=== PATIENT | female | born 1985 | race American Indian/Alaskan Native ===

== ENCOUNTER 2018-07-14 21:27 | Emergency (ER) | payer OTHER ==
--- NOTE | 2018-07-14 22:12 | Emergency Department Report ---
Chief Complaint: Dental/Oral Stated Complaint: ABSCESS TOOTH AND MIGRAINE HEADACHE Time Seen by Provider: 07/14/18 22:08 - HPI History of Present Illness: This is a 33 y.o. F. that presents with toothache and migraine. PMH: Von Willebrand LMP 07/07/2018, A1 - Exam Vital Signs: Vital Signs 07/14/18 21:31 Temperature 98.2 F Pulse Rate 78 Respiratory 18 Rate Blood Pressure 125/74 O2 Sat by Pulse 100 Oximetry MSE screening note: Focused history and physical exam performed. Due to findings the following was ordered: This initial assessment/diagnostic orders/clinical plan/treatment(s) is/are subject to change based on patient's health status, clinical progression and re- assessment by fellow clinical providers in the ED. Further treatment and workup at subsequent clinical providers discretion. Patient/guardians urged not to elope from the ED as their condition may be serious if not clinically assessed and managed. Initial orders include: 1- Patient sent to [facility] for further evaluation and treatment 2- Labs ED Disposition for MSE Condition: Stable
[2018-07-14 22:54] LABS: Mean Corpuscular HGB Conc 27 % (30-34); Platelet Count 399 K/mm3 (140-440); Red Blood Count 4.22 M/mm3 (3.65-5.03)
[2018-07-14 22:55] LABS: Hematocrit 22.6 % (30.3-42.9); Hemoglobin 6.2 gm/dl (10.1-14.3); Mean Corpuscular Volume 54 fl (79-97)
[2018-07-14 22:56] LABS: Red Cell Distribution Width 24.4 % (13.2-15.2)
[2018-07-14 22:58] LABS: INR 1.03 (0.87-1.13)
[2018-07-14 22:59] LABS: Partial Thromboplastin Time 23.7 Sec. (24.2-36.6)
[2018-07-15] MEDS ORDERED: PERCOCET 5/325 PO STA (01:31)
--- NOTE | 2018-07-15 01:34 | Emergency Department Report ---
ED General Adult HPI - General Chief complaint: Dental/Oral Stated complaint: ABSCESS TOOTH AND MIGRAINE HEADACHE Time Seen by Provider: 07/14/18 22:08 Source: patient Mode of arrival: Ambulatory Limitations: No Limitations - History of Present Illness Initial comments: 33-year-old [place] female of's emergency department complaining of a one day history of progressively worsening right lower dental pain. States she was in the process of having her teeth pulled, but has relocated from [place] to the [facility] and it has not followed up with a dentist. Pain originates in the right lower gumline but radiates up the side of her face to her head, causing a dull throbbing pain similar to her migraine flare up. She has not tried taking anything [id number], but seeks analgesia control. Light makes the pain was is worse as well as a palpation and loud noses. Also has some discomfort when chewing. No fever, chills, sweats, chest palpitations, nausea or vomiting. -: Gradual Radiation: non-radiation Quality: aching, dull Consistency: constant Improves with: none Worsens with: none Associated Symptoms: denies: cough, diaphoresis, fever/chills, loss of appetite, malaise, nausea/vomiting, rash, shortness of breath, syncope, weakness - Related Data Previous Rx's Medication Instructions Recorded Last Taken Type Chlorhexidine Mouthwash [Peridex] 15 ml MM BID #473 bottle 07/15/18 Unknown Rx Clindamycin [Clindamycin CAP] 300 mg PO Q6H #28 capsule 07/15/18 Unknown Rx Lidocaine Viscous 2% 5 ml MM Q3H PRN #120 udc 07/15/18 Unknown Rx Allergies Allergy/AdvReac Type Severity Reaction Status Date / Time NSAIDS (Non-Steroidal Allergy Unknown Verified 07/14/18 21:32 Anti-Inflamma Penicillins Allergy Unknown Verified 07/14/18 21:32 ED Review of Systems ROS: Stated complaint: ABSCESS TOOTH AND MIGRAINE HEADACHE Other details as noted in HPI Constitutional: denies: chills, fever Eyes: denies: eye pain, eye discharge, vision change ENT: dental pain. denies: ear pain, throat pain Respiratory: denies: cough, shortness of breath, wheezing Cardiovascular: denies: chest pain, palpitations Endocrine: no symptoms reported Gastrointestinal: denies: abdominal pain, nausea, diarrhea Genitourinary: denies: urgency, dysuria, discharge Musculoskeletal: denies: back pain, joint swelling, arthralgia Skin: denies: rash, lesions Neurological: denies: headache, weakness, paresthesias Psychiatric: denies: anxiety, depression Hematological/Lymphatic: denies: easy bleeding, easy bruising ED Past Medical Hx - Past Medical History Previous Medical History?: Yes Additional medical history: Von Willebrand - Surgical History Past Surgical History?: Yes Additional Surgical History: x4 - Social History Smoking Status: Current Every Day Smoker Substance Use Type: None - Medications Home Medications: Home Medications Medication Instructions Recorded Confirmed Last Taken Type Chlorhexidine Mouthwash [Peridex] 15 ml MM BID #473 bottle 07/15/18 Unknown Rx Clindamycin [Clindamycin CAP] 300 mg PO Q6H #28 capsule 07/15/18 Unknown Rx Lidocaine Viscous 2% 5 ml MM Q3H PRN #120 udc 07/15/18 Unknown Rx ED Physical Exam - General Limitations: No Limitations General appearance: alert, in no apparent distress - Head Head exam: Present: atraumatic, normocephalic - Eye Eye exam: Present: normal appearance, PERRL, EOMI - ENT ENT exam: Present: mucous membranes moist, TM's normal bilaterally, other (severe dental caries and dental erosion diffusely. Pain with palpation and some adjacent gingival swelling. Tongue and uvula are midline.) - Neck Neck exam: Present: normal inspection, full ROM, lymphadenopathy - Respiratory Respiratory exam: Present: normal lung sounds bilaterally. Absent: respiratory distress - Cardiovascular Cardiovascular Exam: Present: regular rate, normal rhythm. Absent: systolic murmur, diastolic murmur, rubs, gallop - GI/Abdominal GI/Abdominal exam: Present: soft, normal bowel sounds - Extremities Exam Extremities exam: Present: normal inspection - Back Exam Back exam: Present: normal inspection - Neurological Exam Neurological exam: Present: alert, oriented X3 - Psychiatric Psychiatric exam: Present: normal affect, normal mood - Skin Skin exam: Present: warm, dry, intact, normal color. Absent: rash ED Course Vital Signs 07/14/18 07/14/18 21:31 22:08 Temperature 98.2 F 98.2 F Pulse Rate 78 74 Respiratory 18 18 Rate Blood Pressure 125/74 125/74 O2 Sat by Pulse 100 100 Oximetry ED Medical Decision Making - Lab Data Result diagrams: 07/14/18 22:30 Critical care attestation.: If time is entered above; I have spent that time in minutes in the direct care of this critically ill patient, excluding procedure time. ED Disposition Clinical Impression: Cephalgia, Dentalgia Disposition: DC-01 TO HOME OR SELFCARE Is pt being admited?: No Does the pt Need Aspirin: No Condition: Stable Instructions: Dental Caries (ED), Toothache (ED) Referrals: NEELA DOTSON MD [Primary Care Provider] - 3-5 Days [facility] [Outside] - 3-5 Days
[2018-07-15 02:43] VITALS: BP 103/59
== END 2018-07-15 03:45 | disposition home or self-care (01) ==
LOC: ED 21:27
DX: K08.89 Other specified disorders of teeth and supporting structures (principal); R51 Headache; F17.200 Nicotine dependence, unspecified, uncomplicated; Z88.6 Allergy status to analgesic agent; Z88.0 Allergy status to penicillin
CPT/HCPCS: 36415; 85027; 85610; 85730

== ENCOUNTER 2018-10-28 15:23 | Inpatient (IN) | payer OTHER ==
--- NOTE | 2018-10-28 15:38 | Emergency Department Report ---
Blank Doc - Documentation Documentation: 33-year-old female that presents with n/v and abdominal pain. This initial assessment/diagnostic orders/clinical plan/treatment(s) is/are subject to change based on patient's health status, clinical progression and re- assessment by fellow clinical providers in the ED. Further treatment and workup at subsequent clinical providers discretion. Patient/guardians urged not to elope from the ED as their condition may be serious if not clinically assessed and managed. Initial orders include: 1- Patient sent to [facility] for further evaluation and treatment 2- labs 3- UA
[2018-10-28 16:08] LABS: Bilirubin,Urine NEG (Negative); Color,Urine Straw (Yellow)
[2018-10-28 16:09] LABS: Blood,Urine SM (Negative); Protein,Urine <15 mg/dL mg/dL (Negative); Urobilinogen,Urine < 2.0 mg/dL (<2.0)
[2018-10-28 16:15] LABS: Basophils # (Auto) 0.1 K/mm3 (0.0-0.1); Basophils % (Auto) 0.7 % (0.0-1.8); Eosinophils % (Auto) 0.1 % (0.0-4.3); Lymphocytes # (Auto) 0.6 K/mm3 (1.2-5.4); Lymphocytes % (Auto) 5.6 % (13.4-35.0); Mean Corpuscular HGB Conc 27 % (30-34); Monocytes # (Auto) 0.7 K/mm3 (0.0-0.8); Monocytes % (Auto) 6.2 % (0.0-7.3); Platelet Count 319 K/mm3 (140-440); Red Blood Count 4.14 M/mm3 (3.65-5.03)
[2018-10-28 16:15] LABS: WBC,Urine < 1.0 /HPF (0.0-6.0)
[2018-10-28 16:36] LABS: Alanine Aminotransferase 13 units/L (7-56); Albumin 4.4 g/dL (3.9-5); BUN/Creatinine Ratio 8; Blood Urea Nitrogen 4 mg/dL (7-17); Calcium 9.5 mg/dL (8.4-10.2); Hemolysis Index 2; Mean Corpuscular Volume 53 fl (79-97)
[2018-10-28] MEDS ORDERED: NACL 0.9% 500 ML 500 ML IV ONE (19:05)
[2018-10-28] MEDS ORDERED: ZOFRAN IV ONE (19:05)
[2018-10-28] MEDS ORDERED: NACL 0.9% 1000 ML 1,000 ML IV ONE (19:05)
[2018-10-28] MEDS ORDERED: MORPHINE IV ONE (19:05)
--- NOTE | 2018-10-28 19:11 | Emergency Department Report ---
ED GI Bleed HPI - General Chief complaint: Abdominal Pain Stated complaint: ULCER INFLAMMATION Time Seen by Provider: 10/28/18 15:37 Source: patient Mode of arrival: Ambulatory Limitations: No Limitations - History of Present Illness Initial comments: Patient is 33 years old female with history of Von Willebrand's disease and history of peptic ulcer. Patient presented to the ER complaining of vomiting blood and epigastric abdominal pain that is started this morning. Patient also stated that she has been passing blood in the stool. Patient stated that she never had an endoscopy before. Patient denied any fever or chills recently. Patient denied any vaginal bleeding or hematuria or hemoptysis. MD complaint: gross hematemesis, melena, blood streaked stool -: This morning Location: epigastric Radiation: none Severity scale (0 -10): 6 Quality: burning Consistency: constant Context: history of GI bleed - Related Data Previous Rx's Medication Instructions Recorded Last Taken Type Chlorhexidine Mouthwash [Peridex] 15 ml MM BID #473 bottle 07/15/18 Unknown Rx Clindamycin [Clindamycin CAP] 300 mg PO Q6H #28 capsule 07/15/18 Unknown Rx Lidocaine Viscous 2% 5 ml MM Q3H PRN #120 udc 07/15/18 Unknown Rx traMADol [Ultram] 50 mg PO Q6HR PRN #14 tablet 07/15/18 Unknown Rx Allergies Allergy/AdvReac Type Severity Reaction Status Date / Time NSAIDS (Non-Steroidal Allergy Unknown Verified 07/14/18 21:32 Anti-Inflamma Penicillins Allergy Unknown Verified 07/14/18 21:32 ED Review of Systems ROS: Stated complaint: ULCER INFLAMMATION Other details as noted in HPI Comment: All other systems reviewed and negative Constitutional: denies: chills, fever Respiratory: denies: cough Gastrointestinal: abdominal pain, nausea, vomiting, hematemesis, melena, hematochezia. denies: diarrhea, constipation Genitourinary: denies: hematuria Musculoskeletal: denies: back pain Neurological: denies: headache, weakness, numbness, paresthesias, confusion ED Past Medical Hx - Past Medical History Previous Medical History?: Yes Additional medical history: Von Willebrand, stomach ulcers - Surgical History Additional Surgical History: x4 - Social History Smoking Status: Current Every Day Smoker Substance Use Type: None - Medications Home Medications: Home Medications Medication Instructions Recorded Confirmed Last Taken Type Chlorhexidine Mouthwash [Peridex] 15 ml MM BID #473 bottle 07/15/18 Unknown Rx Clindamycin [Clindamycin CAP] 300 mg PO Q6H #28 capsule 07/15/18 Unknown Rx Lidocaine Viscous 2% 5 ml MM Q3H PRN #120 udc 07/15/18 Unknown Rx traMADol [Ultram] 50 mg PO Q6HR PRN #14 tablet 07/15/18 Unknown Rx ED Physical Exam - General Limitations: No Limitations General appearance: alert, in no apparent distress - Head Head exam: Present: atraumatic, normocephalic, normal inspection - Eye Eye exam: Present: other (pale conjunctiva) - ENT ENT exam: Present: normal exam, normal orophraynx, mucous membranes moist - Neck Neck exam: Present: normal inspection, full ROM. Absent: tenderness, meningismus, lymphadenopathy, thyromegaly - Respiratory Respiratory exam: Present: normal lung sounds bilaterally - Cardiovascular Cardiovascular Exam: Present: regular rate, normal rhythm, normal heart sounds - GI/Abdominal GI/Abdominal exam: Present: soft, tenderness, normal bowel sounds. Absent: distended, guarding, rebound, rigid, organomegaly, mass, bruit, pulsatile mass, hernia - Extremities Exam Extremities exam: Present: normal inspection, full ROM, normal capillary refill - Back Exam Back exam: Present: normal inspection, full ROM. Absent: CVA tenderness (R), CVA tenderness (L), muscle spasm, paraspinal tenderness, vertebral tenderness - Neurological Exam Neurological exam: Present: alert, oriented X3, CN II-XII intact, normal gait, reflexes normal - Psychiatric Psychiatric exam: Present: normal mood - Skin Skin exam: Present: warm, intact, normal color ED Course Vital Signs 10/28/18 10/28/18 10/28/18 15:37 17:32 19:45 Temperature 98.1 F Pulse Rate 100 H 82 73 Respiratory 15 16 16 Rate Blood Pressure 122/64 Blood Pressure 118/68 106/66 [Left] O2 Sat by Pulse 100 100 100 Oximetry 10/28/18 10/28/18 10/28/18 20:15 20:43 20:45 Temperature Pulse Rate 72 73 73 Respiratory 14 14 18 Rate Blood Pressure 99/46 101/49 110/60 Blood Pressure [Left] O2 Sat by Pulse 98 98 Oximetry 10/28/18 20:46 Temperature 98.7 F Pulse Rate Respiratory Rate Blood Pressure Blood Pressure [Left] O2 Sat by Pulse Oximetry ED Medical Decision Making - Lab Data Result diagrams: 10/28/18 15:58 10/28/18 15:58 - Radiology Data Radiology results: report reviewed - Medical Decision Making Patient is 33 years old female with history of Von Willebrand's disease and history of peptic ulcer. Patient presented to the ER complaining of vomiting blood and epigastric abdominal pain that is started this morning. Patient also stated that she has been passing blood in the stool. Patient stated that she never had an endoscopy before. Patient denied any fever or chills recently. Patient denied any vaginal bleeding or hematuria or hemoptysis. Patient found to have a hemoglobin of 6. Patient started on Protonix.. 1 units of PRBC. I discussed the patient is Dr. Kilgore from gastroenterology she advised that she will follow-up with the patient. I discussed the patient is Dr. Shala Solares, She agreed to admit the patient to medical service. Critical Care Time: Yes Critical care time in (mins) excluding proc time.: 30 Critical care attestation.: If time is entered above; I have spent that time in minutes in the direct care of this critically ill patient, excluding procedure time. ED Disposition Clinical Impression: GI bleed, Abdominal pain, Anemia Disposition: OP ADMIT IP TO THIS HOSP Is pt being admited?: Yes Condition: Stable Instructions: Abdominal Pain (ED) Referrals: PRIMARY CARE, [Primary Care Provider] - 3-5 Days
[2018-10-28 20:54] LABS: Bilirubin,Urine NEG (Negative); Blood,Urine NEG (Negative); Color,Urine Straw (Yellow); Protein,Urine <15 mg/dL mg/dL (Negative); Urobilinogen,Urine < 2.0 mg/dL (<2.0); WBC,Urine < 1.0 /HPF (0.0-6.0)
--- NOTE | 2018-10-28 21:18 | Cat Scan Report ---
CT ABDOMEN AND PELVIS WITH CONTRAST INDICATION / CLINICAL INFORMATION: abdominal pain AND DISTENTION . TECHNIQUE: Axial CT images were obtained through the abdomen and pelvis after 100cc Omnipaque 300 mg% IV contras t. All CT scans at this location are performed using CT dose reduction for ALARA by means of automat ed exposure control. COMPARISON: None available. FINDINGS: LOWER CHEST: No significant abnormality. LIVER: No significant abnormality. GALLBLADDER: No significant abnormality. BILE DUCTS: No significant abnormality. PANCREAS: No significant abnormality. SPLEEN: No significant abnormality. ADRENALS: No significant abnormality. RIGHT KIDNEY and URETER: No significant abnormality. LEFT KIDNEY and URETER: No significant abnormality. STOMACH and SMALL BOWEL: No significant abnormality. COLON: No significant abnormality. APPENDIX: Cannot be identified PERITONEUM: No free fluid. No free air. No fluid collection. LYMPH NODES: No significant adenopathy. AORTA and ARTERIES: No significant abnormality. IVC and VEINS: No significant abnormality. URINARY BLADDER: No significant abnormality. REPRODUCTIVE ORGANS: No significant abnormality. A 2.6 cm cyst present left adnexa. Small amount of f luid is present in the left adnexa ADDITIONAL FINDINGS: None. SKELETAL SYSTEM: No significant abnormality. IMPRESSION: 1. Left ovarian cyst Signer Name: Jaden Wolff MD Signed: 10/28/2018 9:13 PM Workstation Name: [id number]
--- NOTE | 2018-10-28 22:07 | History and Physical Report ---
History of Present Illness Date of examination: 10/28/18 History of present illness: 33 -year-old woman with a history of peptic ulcer disease, vWD comes emergency room with complaints of abdominal pain that started this morning, located in the entire abdomen was started after eating from [employer]. Abdomen sharp, c onstant, intensity 6/10, no radiation, can't identify exacerbating factor, better with IV morphine given in the emergency room. Also stated that she had nausea vomiting , 2 episodes with streaks of blood, also had 2 episodes of hematochezia, no NSAID use Review Of Systems: Constitutional: no weight loss, fever, chills Ears, eyes, nose, mouth and throat: no nasal congestion, no nasal discharge, no sinus pressure, blurry vision, diplopia Neck: No neck pain or rigidity. Cardiovascular: No palpitations, chest pain Respiratory: No shortness of breath, cough Gastrointestinal: +hematochezia, abdominal pain Genitourinary : no dysuria, frequency , hematuria Musculoskeletal: no muscle ache , joint pain Integumentary: no rash, no pruritis Neurological: no parathesias, focal weakness Endocrine: no cold or heat intolerance, no polyuria or polydipsia Hematologic/Lymphatic: no easy bruising, no easy bleeding, no gland swelling Allergic/Immunologic: no urticaria, no angioedema. PAST MEDICAL HISTORY:peptic ulcer disease, vWD PAST SURGICAL HISTORY:None FAMILY HISTORY:hypertension, diabetes SOCIAL HISTORY: Smoke 3 cigarettes a day , drugs or alcohol Medications and Allergies Allergies Allergy/AdvReac Type Severity Reaction Status Date / Time NSAIDS (Non-Steroidal Allergy Unknown Verified 07/14/18 21:32 Anti-Inflamma Penicillins Allergy Unknown Verified 07/14/18 21:32 Exam - Physical Exam Narrative exam: General Apperance: The patient sitting in bed no acute distress HEENT: Normocephalic, atraumatic. Pupils equally round and reactive to light, extraocular movement intact, and no sclericterus or JVD or thyromegaly or nodule. Neck supple, no carotid bruit, mucous membranes moist, no exudate or e rythema Heart: S1-S2, regular is rhythm Lungs: Clear to auscultation bilaterally, breathing comfortable Abdomen: Positive bowel sounds, soft, +tender all over, nondistended, no organomegaly Extremities: No edema cyanosis clubbing Skin: no rash, nodule, warm and dry Neuro:CN 2 -12 intact, motor/sensory intact, speech is fluent - Constitutional Vitals: Temp Pulse Resp BP Pulse Ox 98.7 F 73 18 110/60 98 10/28/18 20:46 10/28/18 20:45 10/28/18 20:45 10/28/18 20:45 10/28/18 20:45 Results - Labs CBC & Chem 7: 10/28/18 15:58 10/28/18 15:58 Labs: Abnormal lab results 10/28/18 10/28/18 10/28/18 Range/Units 15:54 15:58 15:58 WBC 11.3 H (4.5-11.0) K/mm3 Hgb 6.0 L (10.1-14.3) gm/dl Hct 22.0 L (30.3-42.9) % MCV 53 L (79-97) fl MCH 15 L (28-32) pg MCHC 27 L (30-34) % RDW 23.0 H (13.2-15.2) % Lymph % (Auto) 5.6 L (13.4-35.0) % Lymph # 0.6 L (1.2-5.4) K/mm3 Seg Neutrophils % 87.4 H (40.0-70.0) % Seg Neutrophils # 9.9 H (1.8-7.7) K/mm3 Sodium 136 L (137-145) mmol/L Carbon Dioxide 19 L (22-30) mmol/L BUN 4 L (7-17) mg/dL Creatinine 0.5 L (0.7-1.2) mg/dL Urine pH 8.0 H (5.0-7.0) Crossmatch 10/28/18 Range/Units 17:28 WBC (4.5-11.0) K/mm3 Hgb (10.1-14.3) gm/dl Hct (30.3-42.9) % MCV (79-97) fl MCH (28-32) pg MCHC (30-34) % RDW (13.2-15.2) % Lymph % (Auto) (13.4-35.0) % Lymph # (1.2-5.4) K/mm3 Seg Neutrophils % (40.0-70.0) % Seg Neutrophils # (1.8-7.7) K/mm3 Sodium (137-145) mmol/L Carbon Dioxide (22-30) mmol/L BUN (7-17) mg/dL Creatinine (0.7-1.2) mg/dL Urine pH (5.0-7.0) Crossmatch See Detail - Imaging and Cardiology CT scan - abdomen: report reviewed CT scan - pelvis: report reviewed Assessment and Plan Assessment GI bleed Anemia Abdominal pain,NOS vWD plan Admit medicine Transfuse packed red blood cells, consult GI start Protonix, check serial hemoglobin DVT prophylaxis, IV morphine
[2018-10-28] MEDS ORDERED: ZOFRAN IV PRN (23:22)
[2018-10-28] MEDS ORDERED: SODIUM CHLORIDE FLUSH SYRINGE 10 ML IV PRN (23:22)
[2018-10-28] MEDS ORDERED: NACL 0.45% 1000 ML 1,000 ML IV SCH (23:45)
[2018-10-29] MEDS: PROTONIX IV SCH ×3 (00:04→22:19)
[2018-10-29] MEDS: MORPHINE IV PRN ×5 (00:04→20:25)
[2018-10-29 00:33] LABS: Hemoglobin 6.4 gm/dl (10.1-14.3)
[2018-10-29 00:34] LABS: Hematocrit 22.5 % (30.3-42.9)
[2018-10-29 04:21] LABS: Hematocrit 21.7 % (30.3-42.9); Hemoglobin 6.3 gm/dl (10.1-14.3); Mean Corpuscular HGB Conc 29 % (30-34); Platelet Count 246 K/mm3 (140-440); Red Blood Count 3.74 M/mm3 (3.65-5.03)
[2018-10-29 04:29] LABS: Mean Corpuscular Volume 58 fl (79-97); Red Cell Distribution Width 27.6 % (13.2-15.2)
[2018-10-29 04:31] LABS: BUN/Creatinine Ratio 10; Blood Urea Nitrogen 5 mg/dL (7-17); Calcium 8.5 mg/dL (8.4-10.2); Hemolysis Index 3
[2018-10-29] MEDS ORDERED: NACL 0.9% 500 ML 500 ML IV ONE (04:46)
--- NOTE | 2018-10-29 04:49 | Event Note ---
Date: 10/29/18 Pt hgb on admission 6.0, she received 1U PRBC. hgb rechecked now 6.3; Will order additional 1u PRBC. Continue to monitor hgb.
[2018-10-29 05:33] LABS: Basophils % (Manual) 0 % (0.0-1.8); Monocytes % (Manual) 0 % (0.0-7.3); Total Cells Counted 100
[2018-10-29 05:34] LABS: Anisocytosis 2+; Hypochromasia 3+; Macrocytosis Few; Ovalocytes 1+
[2018-10-29 05:35] LABS: Platelet Estimate Consistent w Auto; Schistocytes Rare
[2018-10-29] MEDS ORDERED: D5NS 1,000 ML IV SCH (08:00)
[2018-10-29 10:24] LABS: Hematocrit 25.7 % (30.3-42.9); Hemoglobin 7.8 gm/dl (10.1-14.3)
[2018-10-29 10:38] LABS: INR 1.17 (0.87-1.13)
[2018-10-29] MEDS ORDERED: NACL 0.9% 1000 ML 1,000 ML IV SCH (11:00)
[2018-10-29] MEDS: TYLENOL PO PRN ×2 (11:07→19:01)
[2018-10-29] MEDS: SODIUM CHLORIDE FLUSH SYRINGE 10 ML IV SCH ×2 (11:08→22:20)
--- NOTE | 2018-10-29 11:27 | Gastroenterology Consultation ---
<OLIVERIO BRUNO - Last Filed: 10/29/18 11:28> History of Present Illness - Reason for Consult Consult date: 10/29/18 GI bleed Requesting physician: VINH SMITH - History of Present Illness Patient is a 33 y/o female with PMH of Von Willebrand's disease and PUD who presented to ED for evaluation of vomiting blood and epigastric pain. Upon admission she was found to be anemic with H/H 6.0/22.0. Abd CT showed ovarian cyst but no other abnormality. GI has been consulted for GI bleed. This morning patient was resting in bed w/o acute distress. She reports 3 episodes of bright red bloody emesis yesterday (vomiting began after eating a [employer]). Admits to continued generalized abdominal soreness today but has had no further active signs of bleeding overnight. Denies fever, CP, SOB, wt loss, melena, diarrhea, or gross hematochezia (last BM was with brown stool and slight streaking of red blood on stool per pt report). No hx of liver disease but states a hx of PUD 3 years while in [place] requiring endoscopy with etiology thought to be 2/2 NSAID use to which patient has not taken since that time. Last colonoscopy approximately 5 years ago with negative result per pt report. Past History Past Medical History: other (Von Willebrand, PUD) Past Surgical History: Social history: smoking Family history: diabetes, hypertension, other (vWD) Medications and Allergies Allergies Allergy/AdvReac Type Severity Reaction Status Date / Time NSAIDS (Non-Steroidal Allergy Unknown Verified 07/14/18 21:32 Anti-Inflamma Penicillins Allergy Unknown Verified 07/14/18 21:32 Active Meds: Active Medications Acetaminophen (Tylenol) 650 mg PO Q4H PRN PRN Reason: Pain MILD(1-3)/Fever >100.5/KELLER Last Admin: 10/29/18 11:07 Dose: 650 mg Documented by: Dextrose/Sodium Chloride (D5ns) 1,000 mls @ 75 mls/hr IV DIRECT VIJAYA Sodium Chloride (Nacl 0.9% 1000 Ml) 1,000 mls @ 50 mls/hr IV DIRECT VIJAYA Last Admin: 10/29/18 11:08 Dose: 50 mls/hr Documented by: Morphine Sulfate (Morphine) 2 mg IV Q4H PRN PRN Reason: Pain, Moderate (4-6) Last Admin: 10/29/18 09:09 Dose: 2 mg Documented by: Ondansetron HCl (Zofran) 4 mg IV Q8H PRN PRN Reason: Nausea And Vomiting Pantoprazole Sodium (Protonix) 40 mg IV BID [facility] Last Admin: 10/29/18 09:09 Dose: 40 mg Documented by: Sodium Chloride (Sodium Chloride Flush Syringe 10 Ml) 10 ml IV BID [facility] Last Admin: 10/29/18 11:08 Dose: 10 ml Documented by: Sodium Chloride (Sodium Chloride Flush Syringe 10 Ml) 10 ml IV PRN PRN PRN Reason: LINE FLUSH medications reviewed/updated as required Review of Systems - Review of Systems All systems: negative Gastrointestinal: abdominal pain, hematemesis Exam - Constitutional Vital Signs: Temp Pulse Resp BP Pulse Ox 98.6 F 60 18 110/68 99 10/29/18 09:00 10/29/18 09:00 10/29/18 09:00 10/29/18 09:00 10/29/18 09:00 General appearance: no acute distress - EENT Eyes: PERRL, EOM intact ENT: hearing intact - Respiratory Respiratory effort: normal - Cardiovascular Rhythm: regular - Gastrointestinal General gastrointestinal: Present: soft, tender (slight generalized TTP), non- distended, normal bowel sounds - Neurologic Neurological: alert and oriented x3 - Labs CBC & Chem 7: 10/29/18 10:08 10/29/18 03:54 Lab Results: Laboratory Results - last 24 hr 10/28/18 10/28/18 10/28/18 15:54 15:58 15:58 WBC 11.3 H RBC 4.14 Hgb 6.0 L Hct 22.0 L MCV 53 L MCH 15 L MCHC 27 L RDW 23.0 H Plt Count 319 Lymph % (Auto) 5.6 L [place] % (Auto) 6.2 Eos % (Auto) 0.1 Baso % (Auto) 0.7 Lymph # 0.6 L [place] # 0.7 Eos # 0.0 Baso # 0.1 Add Manual Diff Total Counted Seg Neutrophils % 87.4 H Seg Neuts % (Manual) Band Neutrophils % Lymphocytes % (Manual) Reactive Lymphs % (Man) Monocytes % (Manual) Eosinophils % (Manual) Basophils % (Manual) Metamyelocytes % Myelocytes % Promyelocytes % Blast Cells % Nucleated RBC % Seg Neutrophils # 9.9 H Seg Neutrophils # Man Band Neutrophils # Lymphocytes # (Manual) Abs React Lymphs (Man) Monocytes # (Manual) Eosinophils # (Manual) Basophils # (Manual) Metamyelocytes # Myelocytes # Promyelocytes # Blast Cells # WBC Morphology Hypersegmented Neuts Hyposegmented Neuts Hypogranular Neuts Smudge Cells Toxic Granulation Toxic Vacuolation Dohle Bodies Pelger-Huet Anomaly [place] Rods Platelet Estimate Clumped Platelets Plt Clumps, EDTA Large Platelets Giant Platelets Platelet Satelliting Plt Morphology Comment RBC Morphology Dimorphic RBCs Polychromasia Hypochromasia Poikilocytosis Anisocytosis Microcytosis Macrocytosis Spherocytes Pappenheimer Bodies Sickle Cells Target Cells Tear Drop Cells Ovalocytes Helmet Cells [place] Bodies Mallard Rings [place] Cells Bite Cells Crenated Cell Elliptocytes Acanthocytes (Spur) Rouleaux Hemoglobin C Crystals Schistocytes Malaria parasites Shemar Bodies Hem Pathologist Commnt PT INR Sodium 136 L Potassium 3.7 Chloride 101.8 Carbon Dioxide 19 L Anion Gap 19 BUN 4 L Creatinine 0.5 L Estimated GFR > 60 BUN/Creatinine Ratio 8 Glucose 99 Calcium 9.5 Total Bilirubin 0.30 AST 16 ALT 13 Alkaline Phosphatase 50 Troponin T Total Protein 7.9 Albumin 4.4 Albumin/Globulin Ratio 1.3 Lipase 17 HCG, Qual Urine Color Straw Urine Turbidity Clear Urine pH 8.0 H Ur Specific Vanduser 1.006 Urine Protein <15 mg/dl Urine Glucose (UA) Neg Urine Ketones Neg Urine Blood Sm Urine Nitrite Neg Urine Bilirubin Neg Urine Urobilinogen < 2.0 Ur Leukocyte Esterase Neg Urine WBC (Auto) < 1.0 Urine RBC (Auto) 1.0 U Epithel Cells (Auto) 1.0 Blood Type Antibody Screen Crossmatch 10/28/18 10/28/18 10/28/18 15:58 17:25 17:28 WBC RBC Hgb Hct MCV MCH MCHC RDW Plt Count Lymph % (Auto) [place] % (Auto) Eos % (Auto) Baso % (Auto) Lymph # [place] # Eos # Baso # Add Manual Diff Total Counted Seg Neutrophils % Seg Neuts % (Manual) Band Neutrophils % Lymphocytes % (Manual) Reactive Lymphs % (Man) Monocytes % (Manual) Eosinophils % (Manual) Basophils % (Manual) Metamyelocytes % Myelocytes % Promyelocytes % Blast Cells % Nucleated RBC % Seg Neutrophils # Seg Neutrophils # Man Band Neutrophils # Lymphocytes # (Manual) Abs React Lymphs (Man) Monocytes # (Manual) Eosinophils # (Manual) Basophils # (Manual) Metamyelocytes # Myelocytes # Promyelocytes # Blast Cells # WBC Morphology Hypersegmented Neuts Hyposegmented Neuts Hypogranular Neuts Smudge Cells Toxic Granulation Toxic Vacuolation Dohle Bodies Pelger-Huet Anomaly [place] Rods Platelet Estimate Clumped Platelets Plt Clumps, EDTA Large Platelets Giant Platelets Platelet Satelliting Plt Morphology Comment RBC Morphology Dimorphic RBCs Polychromasia Hypochromasia Poikilocytosis Anisocytosis Microcytosis Macrocytosis Spherocytes Pappenheimer Bodies Sickle Cells Target Cells Tear Drop Cells Ovalocytes Helmet Cells [place] Bodies Mallard Rings [place] Cells Bite Cells Crenated Cell Elliptocytes Acanthocytes (Spur) Rouleaux Hemoglobin C Crystals Schistocytes Malaria parasites Shemar Bodies Hem Pathologist Commnt PT INR Sodium Potassium Chloride Carbon Dioxide Anion Gap BUN Creatinine Estimated GFR BUN/Creatinine Ratio Glucose Calcium Total Bilirubin AST ALT Alkaline Phosphatase Troponin T < 0.010 Total Protein Albumin Albumin/Globulin Ratio Lipase HCG, Qual Negative Urine Color Urine Turbidity Urine pH Ur Specific Vanduser Urine Protein Urine Glucose (UA) Urine Ketones Urine Blood Urine Nitrite Urine Bilirubin Urine Urobilinogen Ur Leukocyte Esterase Urine WBC (Auto) Urine RBC (Auto) U Epithel Cells (Auto) Blood Type B POSITIVE Antibody Screen Negative Crossmatch See Detail 10/28/18 10/28/18 10/29/18 20:40 23:45 03:54 WBC 6.7 RBC 3.74 Hgb 6.4 L 6.3 L Hct 22.5 L 21.7 L MCV 58 L MCH 17 L MCHC 29 L RDW 27.6 H Plt Count 246 Lymph % (Auto) [place] % (Auto) Eos % (Auto) Baso % (Auto) Lymph # [place] # Eos # Baso # Add Manual Diff Complete Total Counted 100 Seg Neutrophils % Seg Neuts % (Manual) 57.0 Band Neutrophils % 0 Lymphocytes % (Manual) 40.0 H Reactive Lymphs % (Man) 0 Monocytes % (Manual) 0 Eosinophils % (Manual) 1.0 Basophils % (Manual) 0 Metamyelocytes % 2.0 Myelocytes % 0 Promyelocytes % 0 Blast Cells % 0 Nucleated RBC % Not Reportable Seg Neutrophils # Seg Neutrophils # Man 3.8 Band Neutrophils # 0.0 Lymphocytes # (Manual) 2.7 Abs React Lymphs (Man) 0.0 Monocytes # (Manual) 0.0 Eosinophils # (Manual) 0.1 Basophils # (Manual) 0.0 Metamyelocytes # 0.1 Myelocytes # 0.0 Promyelocytes # 0.0 Blast Cells # 0.0 WBC Morphology Not Reportable Hypersegmented Neuts Not Reportable Hyposegmented Neuts Not Reportable Hypogranular Neuts Not Reportable Smudge Cells Not Reportable Toxic Granulation Not Reportable Toxic Vacuolation Not Reportable Dohle Bodies Not Reportable Pelger-Huet Anomaly Not Reportable [place] Rods Not Reportable Platelet Estimate Consistent w auto Clumped Platelets Not Reportable Plt Clumps, EDTA Not Reportable Large Platelets Not Reportable Giant Platelets Not Reportable Platelet Satelliting Not Reportable Plt Morphology Comment Not Reportable RBC Morphology Not Reportable Dimorphic RBCs Not Reportable Polychromasia Not Reportable Hypochromasia 3+ Poikilocytosis Not Reportable Anisocytosis 2+ Microcytosis Not Reportable Macrocytosis Few Spherocytes Not Reportable Pappenheimer Bodies Not Reportable Sickle Cells Not Reportable Target Cells Not Reportable Tear Drop Cells Not Reportable Ovalocytes 1+ Helmet Cells Not Reportable [place] Bodies Not Reportable Mallard Rings Not Reportable [place] Cells Not Reportable Bite Cells Not Reportable Crenated Cell Not Reportable Elliptocytes Not Reportable Acanthocytes (Spur) Not Reportable Rouleaux Not Reportable Hemoglobin C Crystals Not Reportable Schistocytes Rare Malaria parasites Not Reportable Shemar Bodies Not Reportable Hem Pathologist Commnt No PT INR Sodium Potassium Chloride Carbon Dioxide Anion Gap BUN Creatinine Estimated GFR BUN/Creatinine Ratio Glucose Calcium Total Bilirubin AST ALT Alkaline Phosphatase Troponin T Total Protein Albumin Albumin/Globulin Ratio Lipase HCG, Qual Urine Color Straw Urine Turbidity Clear Urine pH 7.0 Ur Specific [place]user 1.006 Urine Protein <15 mg/dl Urine Glucose (UA) Neg Urine Ketones Neg Urine Blood Neg Urine Nitrite Neg Urine Bilirubin Neg Urine Urobilinogen < 2.0 Ur Leukocyte Esterase Neg Urine WBC (Auto) < 1.0 Urine RBC (Auto) 2.0 U Epithel Cells (Auto) 1.0 Blood Type Antibody Screen Crossmatch 10/29/18 10/29/18 10/29/18 03:54 10:08 10:08 WBC RBC Hgb 7.8 L Hct 25.7 L MCV MCH MCHC RDW Plt Count Lymph % (Auto) [place] % (Auto) Eos % (Auto) Baso % (Auto) Lymph # [place] # Eos # Baso # Add Manual Diff Total Counted Seg Neutrophils % Seg Neuts % (Manual) Band Neutrophils % Lymphocytes % (Manual) Reactive Lymphs % (Man) Monocytes % (Manual) Eosinophils % (Manual) Basophils % (Manual) Metamyelocytes % Myelocytes % Promyelocytes % Blast Cells % Nucleated RBC % Seg Neutrophils # Seg Neutrophils # Man Band Neutrophils # Lymphocytes # (Manual) Abs React Lymphs (Man) Monocytes # (Manual) Eosinophils # (Manual) Basophils # (Manual) Metamyelocytes # Myelocytes # Promyelocytes # Blast Cells # WBC Morphology Hypersegmented Neuts Hyposegmented Neuts Hypogranular Neuts Smudge Cells Toxic Granulation Toxic Vacuolation Dohle Bodies Pelger-Huet Anomaly [place] Rods Platelet Estimate Clumped Platelets Plt Clumps, EDTA Large Platelets Giant Platelets Platelet Satelliting Plt Morphology Comment RBC Morphology Dimorphic RBCs Polychromasia Hypochromasia Poikilocytosis Anisocytosis Microcytosis Macrocytosis Spherocytes Pappenheimer Bodies Sickle Cells Target Cells Tear Drop Cells Ovalocytes Helmet Cells [place] Bodies Mallard Rings [place] Cells Bite Cells Crenated Cell Elliptocytes Acanthocytes (Spur) Rouleaux Hemoglobin C Crystals Schistocytes Malaria parasites Shemar Bodies Hem Pathologist Commnt PT 14.6 INR 1.17 H Sodium 139 Potassium 3.5 L Chloride 106.5 Carbon Dioxide 21 L Anion Gap 15 BUN 5 L Creatinine 0.5 L Estimated GFR > 60 BUN/Creatinine Ratio 10 Glucose 89 Calcium 8.5 Total Bilirubin AST ALT Alkaline Phosphatase Troponin T Total Protein Albumin Albumin/Globulin Ratio Lipase HCG, Qual Urine Color Urine Turbidity Urine pH Ur Specific Vanduser Urine Protein Urine Glucose (UA) Urine Ketones Urine Blood Urine Nitrite Urine Bilirubin Urine Urobilinogen Ur Leukocyte Esterase Urine WBC (Auto) Urine RBC (Auto) U Epithel Cells (Auto) Blood Type Antibody Screen Crossmatch Assessment and Plan 1.GI bleed/hematemesis 2.H/O PUD 3.H/O Von Willebrand's disease -H/H 7.8/25.7 s/p 2 units PRBCs (6.0/22.0 on admission; basline unknown) -continue to monitor H/H and transfuse as needed- hold blood thinning medications -no active signs of bleeding overnight or this am (3 episodes of bright red bloody emesis and streak of red blood on brown stool yesterday per pt report; no melena or gross hematochezia) -currently HD stable -etiology unclear-possible recurrent PUD vs other -will schedule for EGD today for further evaluation -Keen NPO for now -continue PPI and supportive care -further recommendation to follow EGD results <MARLEY BARAJAS - Last Filed: 10/29/18 13:47> History of Present Illness - History of Present Illness Of note, pt has menorrhagia, chronic anemia, and had a Hgb = 6.3 with MCV = 54 in 06/2018. Past History Past Medical History: other Medications and Allergies Active Meds: Active Medications Acetaminophen (Tylenol) 650 mg PO Q4H PRN PRN Reason: Pain MILD(1-3)/Fever >100.5/KELLER Last Admin: 10/29/18 11:07 Dose: 650 mg Documented by: Dextrose/Sodium Chloride (D5ns) 1,000 mls @ 75 mls/hr IV DIRECT VIJAYA Sodium Chloride (Nacl 0.9% 1000 Ml) 1,000 mls @ 50 mls/hr IV DIRECT VIJAYA Last Admin: 10/29/18 11:08 Dose: 50 mls/hr Documented by: Morphine Sulfate (Morphine) 2 mg IV Q4H PRN PRN Reason: Pain, Moderate (4-6) Last Admin: 10/29/18 09:09 Dose: 2 mg Documented by: Ondansetron HCl (Zofran) 4 mg IV Q8H PRN PRN Reason: Nausea And Vomiting Pantoprazole Sodium (Protonix) 40 mg IV BID [facility] Last Admin: 10/29/18 09:09 Dose: 40 mg Documented by: Sodium Chloride (Sodium Chloride Flush Syringe 10 Ml) 10 ml IV BID [facility] Last Admin: 10/29/18 11:08 Dose: 10 ml Documented by: Sodium Chloride (Sodium Chloride Flush Syringe 10 Ml) 10 ml IV PRN PRN PRN Reason: LINE FLUSH Exam - Constitutional Vital Signs: Temp Pulse Resp BP Pulse Ox 98.4 F 126 H 13 113/61 100 10/29/18 12:20 10/29/18 12:20 10/29/18 12:20 10/29/18 12:20 10/29/18 12:20 - Gastrointestinal Rectal Exam: other (Normal, with light brown stool, and no asa blood) - Labs CBC & Chem 7: 10/29/18 10:08 10/29/18 03:54 Lab Results: Laboratory Results - last 24 hr 10/28/18 10/28/18 10/28/18 15:54 15:58 15:58 WBC 11.3 H RBC 4.14 Hgb 6.0 L Hct 22.0 L MCV 53 L MCH 15 L MCHC 27 L RDW 23.0 H Plt Count 319 Lymph % (Auto) 5.6 L [place] % (Auto) 6.2 Eos % (Auto) 0.1 Baso % (Auto) 0.7 Lymph # 0.6 L [place] # 0.7 Eos # 0.0 Baso # 0.1 Add Manual Diff Total Counted Seg Neutrophils % 87.4 H Seg Neuts % (Manual) Band Neutrophils % Lymphocytes % (Manual) Reactive Lymphs % (Man) Monocytes % (Manual) Eosinophils % (Manual) Basophils % (Manual) Metamyelocytes % Myelocytes % Promyelocytes % Blast Cells % Nucleated RBC % Seg Neutrophils # 9.9 H Seg Neutrophils # Man Band Neutrophils # Lymphocytes # (Manual) Abs React Lymphs (Man) Monocytes # (Manual) Eosinophils # (Manual) Basophils # (Manual) Metamyelocytes # Myelocytes # Promyelocytes # Blast Cells # WBC Morphology Hypersegmented Neuts Hyposegmented Neuts Hypogranular Neuts Smudge Cells Toxic Granulation Toxic Vacuolation Dohle Bodies Pelger-Huet Anomaly [place] Rods Platelet Estimate Clumped Platelets Plt Clumps, EDTA Large Platelets Giant Platelets Platelet Satelliting Plt Morphology Comment RBC Morphology Dimorphic RBCs Polychromasia Hypochromasia Poikilocytosis Anisocytosis Microcytosis Macrocytosis Spherocytes Pappenheimer Bodies Sickle Cells Target Cells Tear Drop Cells Ovalocytes Helmet Cells [place] Bodies Mallard Rings [place] Cells Bite Cells Crenated Cell Elliptocytes Acanthocytes (Spur) Rouleaux Hemoglobin C Crystals Schistocytes Malaria parasites Shemar Bodies Hem Pathologist Commnt PT INR Sodium 136 L Potassium 3.7 Chloride 101.8 Carbon Dioxide 19 L Anion Gap 19 BUN 4 L Creatinine 0.5 L Estimated GFR > 60 BUN/Creatinine Ratio 8 Glucose 99 Calcium 9.5 Total Bilirubin 0.30 AST 16 ALT 13 Alkaline Phosphatase 50 Troponin T Total Protein 7.9 Albumin 4.4 Albumin/Globulin Ratio 1.3 Lipase 17 HCG, Qual Urine Color Straw Urine Turbidity Clear Urine pH 8.0 H Ur Specific [place]anduser 1.006 Urine Protein <15 mg/dl Urine Glucose (UA) Neg Urine Ketones Neg Urine Blood Sm Urine Nitrite Neg Urine Bilirubin Neg Urine Urobilinogen < 2.0 Ur Leukocyte Esterase Neg Urine WBC (Auto) < 1.0 Urine RBC (Auto) 1.0 U Epithel Cells (Auto) 1.0 Blood Type Antibody Screen Crossmatch 10/28/18 10/28/18 10/28/18 15:58 17:25 17:28 WBC RBC Hgb Hct MCV MCH MCHC RDW Plt Count Lymph % (Auto) [place] % (Auto) Eos % (Auto) Baso % (Auto) Lymph # [place] # Eos # Baso # Add Manual Diff Total Counted Seg Neutrophils % Seg Neuts % (Manual) Band Neutrophils % Lymphocytes % (Manual) Reactive Lymphs % (Man) Monocytes % (Manual) Eosinophils % (Manual) Basophils % (Manual) Metamyelocytes % Myelocytes % Promyelocytes % Blast Cells % Nucleated RBC % Seg Neutrophils # Seg Neutrophils # Man Band Neutrophils # Lymphocytes # (Manual) Abs React Lymphs (Man) Monocytes # (Manual) Eosinophils # (Manual) Basophils # (Manual) Metamyelocytes # Myelocytes # Promyelocytes # Blast Cells # WBC Morphology Hypersegmented Neuts Hyposegmented Neuts Hypogranular Neuts Smudge Cells Toxic Granulation Toxic Vacuolation Dohle Bodies Pelger-Huet Anomaly [place] Rods Platelet Estimate Clumped Platelets Plt Clumps, EDTA Large Platelets Giant Platelets Platelet Satelliting Plt Morphology Comment RBC Morphology Dimorphic RBCs Polychromasia Hypochromasia Poikilocytosis Anisocytosis Microcytosis Macrocytosis Spherocytes Pappenheimer Bodies Sickle Cells Target Cells Tear Drop Cells Ovalocytes Helmet Cells [place] Bodies Mallard Rings [place] Cells Bite Cells Crenated Cell Elliptocytes Acanthocytes (Spur) Rouleaux Hemoglobin C Crystals Schistocytes Malaria parasites Shemar Bodies Hem Pathologist Commnt PT INR Sodium Potassium Chloride Carbon Dioxide Anion Gap BUN Creatinine Estimated GFR BUN/Creatinine Ratio Glucose Calcium Total Bilirubin AST ALT Alkaline Phosphatase Troponin T < 0.010 Total Protein Albumin Albumin/Globulin Ratio Lipase HCG, Qual Negative Urine Color Urine Turbidity Urine pH Ur Specific Vanduser Urine Protein Urine Glucose (UA) Urine Ketones Urine Blood Urine Nitrite Urine Bilirubin Urine Urobilinogen Ur Leukocyte Esterase Urine WBC (Auto) Urine RBC (Auto) U Epithel Cells (Auto) Blood Type B POSITIVE Antibody Screen Negative Crossmatch See Detail 10/28/18 10/28/18 10/29/18 20:40 23:45 03:54 WBC 6.7 RBC 3.74 Hgb 6.4 L 6.3 L Hct 22.5 L 21.7 L MCV 58 L MCH 17 L MCHC 29 L RDW 27.6 H Plt Count 246 Lymph % (Auto) [place] % (Auto) Eos % (Auto) Baso % (Auto) Lymph # [place] # Eos # Baso # Add Manual Diff Complete Total Counted 100 Seg Neutrophils % Seg Neuts % (Manual) 57.0 Band Neutrophils % 0 Lymphocytes % (Manual) 40.0 H Reactive Lymphs % (Man) 0 Monocytes % (Manual) 0 Eosinophils % (Manual) 1.0 Basophils % (Manual) 0 Metamyelocytes % 2.0 Myelocytes % 0 Promyelocytes % 0 Blast Cells % 0 Nucleated RBC % Not Reportable Seg Neutrophils # Seg Neutrophils # Man 3.8 Band Neutrophils # 0.0 Lymphocytes # (Manual) 2.7 Abs React Lymphs (Man) 0.0 Monocytes # (Manual) 0.0 Eosinophils # (Manual) 0.1 Basophils # (Manual) 0.0 Metamyelocytes # 0.1 Myelocytes # 0.0 Promyelocytes # 0.0 Blast Cells # 0.0 WBC Morphology Not Reportable Hypersegmented Neuts Not Reportable Hyposegmented Neuts Not Reportable Hypogranular Neuts Not Reportable Smudge Cells Not Reportable Toxic Granulation Not Reportable Toxic Vacuolation Not Reportable Dohle Bodies Not Reportable Pelger-Huet Anomaly Not Reportable [place] Rods Not Reportable Platelet Estimate Consistent w auto Clumped Platelets Not Reportable Plt Clumps, EDTA Not Reportable Large Platelets Not Reportable Giant Platelets Not Reportable Platelet Satelliting Not Reportable Plt Morphology Comment Not Reportable RBC Morphology Not Reportable Dimorphic RBCs Not Reportable Polychromasia Not Reportable Hypochromasia 3+ Poikilocytosis Not Reportable Anisocytosis 2+ Microcytosis Not Reportable Macrocytosis Few Spherocytes Not Reportable Pappenheimer Bodies Not Reportable Sickle Cells Not Reportable Target Cells Not Reportable Tear Drop Cells Not Reportable Ovalocytes 1+ Helmet Cells Not Reportable [place] Bodies Not Reportable Mallard Rings Not Reportable [place] Cells Not Reportable Bite Cells Not Reportable Crenated Cell Not Reportable Elliptocytes Not Reportable Acanthocytes (Spur) Not Reportable Rouleaux Not Reportable Hemoglobin C Crystals Not Reportable Schistocytes Rare Malaria parasites Not Reportable Shemar Bodies Not Reportable Hem Pathologist Commnt No PT INR Sodium Potassium Chloride Carbon Dioxide Anion Gap BUN Creatinine Estimated GFR BUN/Creatinine Ratio Glucose Calcium Total Bilirubin AST ALT Alkaline Phosphatase Troponin T Total Protein Albumin Albumin/Globulin Ratio Lipase HCG, Qual Urine Color Straw Urine Turbidity Clear Urine pH 7.0 Ur Specific [place] 1.006 Urine Protein <15 mg/dl Urine Glucose (UA) Neg Urine Ketones Neg Urine Blood Neg Urine Nitrite Neg Urine Bilirubin Neg Urine Urobilinogen < 2.0 Ur Leukocyte Esterase Neg Urine WBC (Auto) < 1.0 Urine RBC (Auto) 2.0 U Epithel Cells (Auto) 1.0 Blood Type Antibody Screen Crossmatch 10/29/18 10/29/18 10/29/18 03:54 10:08 10:08 WBC RBC Hgb 7.8 L Hct 25.7 L MCV MCH MCHC RDW Plt Count Lymph % (Auto) [place] % (Auto) Eos % (Auto) Baso % (Auto) Lymph # [place] # Eos # Baso # Add Manual Diff Total Counted Seg Neutrophils % Seg Neuts % (Manual) Band Neutrophils % Lymphocytes % (Manual) Reactive Lymphs % (Man) Monocytes % (Manual) Eosinophils % (Manual) Basophils % (Manual) Metamyelocytes % Myelocytes % Promyelocytes % Blast Cells % Nucleated RBC % Seg Neutrophils # Seg Neutrophils # Man Band Neutrophils # Lymphocytes # (Manual) Abs React Lymphs (Man) Monocytes # (Manual) Eosinophils # (Manual) Basophils # (Manual) Metamyelocytes # Myelocytes # Promyelocytes # Blast Cells # WBC Morphology Hypersegmented Neuts Hyposegmented Neuts Hypogranular Neuts Smudge Cells Toxic Granulation Toxic Vacuolation Dohle Bodies Pelger-Huet Anomaly [place] Rods Platelet Estimate Clumped Platelets Plt Clumps, EDTA Large Platelets Giant Platelets Platelet Satelliting Plt Morphology Comment RBC Morphology Dimorphic RBCs Polychromasia Hypochromasia Poikilocytosis Anisocytosis Microcytosis Macrocytosis Spherocytes Pappenheimer Bodies Sickle Cells Target Cells Tear Drop Cells Ovalocytes Helmet Cells [place] Bodies Mallard Rings [place] Cells Bite Cells Crenated Cell Elliptocytes Acanthocytes (Spur) Rouleaux Hemoglobin C Crystals Schistocytes Malaria parasites Shemar Bodies Hem Pathologist Commnt PT 14.6 INR 1.17 H Sodium 139 Potassium 3.5 L Chloride 106.5 Carbon Dioxide 21 L Anion Gap 15 BUN 5 L Creatinine 0.5 L Estimated GFR > 60 BUN/Creatinine Ratio 10 Glucose 89 Calcium 8.5 Total Bilirubin AST ALT Alkaline Phosphatase Troponin T Total Protein Albumin Albumin/Globulin Ratio Lipase HCG, Qual Urine Color Urine Turbidity Urine pH Ur Specific [place]user Urine Protein Urine Glucose (UA) Urine Ketones Urine Blood Urine Nitrite Urine Bilirubin Urine Urobilinogen Ur Leukocyte Esterase Urine WBC (Auto) Urine RBC (Auto) U Epithel Cells (Auto) Blood Type Antibody Screen Crossmatch Assessment and Plan Pt likely has chronic iron def anemia due to menorrhagia. Need to exclude PUD given hx, but may well have Shanda-Eagle tear.
--- NOTE | 2018-10-29 11:44 | Progress Note ---
Assessment and Plan Assessment and plan: Assessment GI bleed Anemia Abdominal pain,NOS vWD plan Admit medicine Transfuse packed red blood cells, consult GI start Protonix, check serial hemoglobin DVT prophylaxis, IV morphine History Interval history: Bloody stool vomited blood Hospitalist Physical - Constitutional Vitals: Temp Pulse Resp BP Pulse Ox 98.6 F 60 18 110/68 99 10/29/18 09:00 10/29/18 09:00 10/29/18 09:00 10/29/18 09:00 10/29/18 09:00 Results - Labs CBC & Chem 7: 10/29/18 10:08 10/29/18 03:54 Labs: Laboratory Last Values WBC 6.7 K/mm3 (4.5-11.0) 10/29/18 03:54 RBC 3.74 M/mm3 (3.65-5.03) 10/29/18 03:54 Hgb 7.8 gm/dl (10.1-14.3) L 10/29/18 10:08 Hct 25.7 % (30.3-42.9) L 10/29/18 10:08 MCV 58 fl (79-97) L 10/29/18 03:54 MCH 17 pg (28-32) L 10/29/18 03:54 MCHC 29 % (30-34) L 10/29/18 03:54 RDW 27.6 % (13.2-15.2) H 10/29/18 03:54 Plt Count 246 K/mm3 (140-440) 10/29/18 03:54 Lymph % (Auto) 5.6 % (13.4-35.0) L 10/28/18 15:58 Story % (Auto) 6.2 % (0.0-7.3) 10/28/18 15:58 Eos % (Auto) 0.1 % (0.0-4.3) 10/28/18 15:58 Baso % (Auto) 0.7 % (0.0-1.8) 10/28/18 15:58 Lymph # 0.6 K/mm3 (1.2-5.4) L 10/28/18 15:58 Story # 0.7 K/mm3 (0.0-0.8) 10/28/18 15:58 Eos # 0.0 K/mm3 (0.0-0.4) 10/28/18 15:58 Baso # 0.1 K/mm3 (0.0-0.1) 10/28/18 15:58 Add Manual Diff Complete 10/29/18 03:54 Total Counted 100 10/29/18 03:54 Seg Neutrophils % 87.4 % (40.0-70.0) H 10/28/18 15:58 Seg Neuts % (Manual) 57.0 % (40.0-70.0) 10/29/18 03:54 0 % 10/29/18 03:54 40.0 % (13.4-35.0) H 10/29/18 03:54 Reactive Lymphs % (Man) 0 % 10/29/18 03:54 0 % (0.0-7.3) 10/29/18 03:54 1.0 % (0.0-4.3) 10/29/18 03:54 0 % (0.0-1.8) 10/29/18 03:54 2.0 % 10/29/18 03:54 0 % 10/29/18 03:54 0 % 10/29/18 03:54 0 % 10/29/18 03:54 Nucleated RBC % Not Reportable 10/29/18 03:54 Seg Neutrophils # 9.9 K/mm3 (1.8-7.7) H 10/28/18 15:58 Seg Neutrophils # Man 3.8 K/mm3 (1.8-7.7) 10/29/18 03:54 Band Neutrophils # 0.0 K/mm3 10/29/18 03:54 2.7 K/mm3 (1.2-5.4) 10/29/18 03:54 Abs React Lymphs (Man) 0.0 K/mm3 10/29/18 03:54 0.0 K/mm3 (0.0-0.8) 10/29/18 03:54 0.1 K/mm3 (0.0-0.4) 10/29/18 03:54 0.0 K/mm3 (0.0-0.1) 10/29/18 03:54 0.1 K/mm3 10/29/18 03:54 0.0 K/mm3 10/29/18 03:54 0.0 K/mm3 10/29/18 03:54 Blast Cells # 0.0 K/mm3 10/29/18 03:54 WBC Morphology Not Reportable 10/29/18 03:54 Hypersegmented Neuts Not Reportable 10/29/18 03:54 Hyposegmented Neuts Not Reportable 10/29/18 03:54 Hypogranular Neuts Not Reportable 10/29/18 03:54 Not Reportable 10/29/18 03:54 Not Reportable 10/29/18 03:54 Not Reportable 10/29/18 03:54 Not Reportable 10/29/18 03:54 Not Reportable 10/29/18 03:54 Not Reportable 10/29/18 03:54 Consistent w auto 10/29/18 03:54 Not Reportable 10/29/18 03:54 Plt Clumps, EDTA Not Reportable 10/29/18 03:54 Not Reportable 10/29/18 03:54 Not Reportable 10/29/18 03:54 Not Reportable 10/29/18 03:54 Plt Morphology Comment Not Reportable 10/29/18 03:54 RBC Morphology Not Reportable 10/29/18 03:54 Dimorphic RBCs Not Reportable 10/29/18 03:54 Not Reportable 10/29/18 03:54 3+ 10/29/18 03:54 Not Reportable 10/29/18 03:54 2+ 10/29/18 03:54 Not Reportable 10/29/18 03:54 Few 10/29/18 03:54 Not Reportable 10/29/18 03:54 Not Reportable 10/29/18 03:54 Not Reportable 10/29/18 03:54 Not Reportable 10/29/18 03:54 Not Reportable 10/29/18 03:54 1+ 10/29/18 03:54 Not Reportable 10/29/18 03:54 Not Reportable 10/29/18 03:54 Not Reportable 10/29/18 03:54 Not Reportable 10/29/18 03:54 Not Reportable 10/29/18 03:54 Not Reportable 10/29/18 03:54 Not Reportable 10/29/18 03:54 Acanthocytes (Spur) Not Reportable 10/29/18 03:54 Rouleaux Not Reportable 10/29/18 03:54 Not Reportable 10/29/18 03:54 Rare 10/29/18 03:54 Not Reportable 10/29/18 03:54 Not Reportable 10/29/18 03:54 Hem Pathologist Commnt No 10/29/18 03:54 PT 14.6 Sec. (12.2-14.9) 10/29/18 10:08 INR 1.17 (0.87-1.13) H 10/29/18 10:08 Sodium 139 mmol/L (137-145) 10/29/18 03:54 Potassium 3.5 mmol/L (3.6-5.0) L 10/29/18 03:54 Chloride 106.5 mmol/L (98-107) 10/29/18 03:54 Carbon Dioxide 21 mmol/L (22-30) L 10/29/18 03:54 15 mmol/L 10/29/18 03:54 BUN 5 mg/dL (7-17) L 10/29/18 03:54 0.5 mg/dL (0.7-1.2) L 10/29/18 03:54 Estimated GFR > 60 ml/min 10/29/18 03:54 10 % 10/29/18 03:54 Glucose 89 mg/dL (65-100) 10/29/18 03:54 Calcium 8.5 mg/dL (8.4-10.2) 10/29/18 03:54 0.30 mg/dL (0.1-1.2) 10/28/18 15:58 AST 16 units/L (5-40) 10/28/18 15:58 ALT 13 units/L (7-56) 10/28/18 15:58 50 units/L (35-129) 10/28/18 15:58 < 0.010 ng/mL (0.00-0.029) 10/28/18 17:25 7.9 g/dL (6.3-8.2) 10/28/18 15:58 4.4 g/dL (3.9-5) 10/28/18 15:58 1.3 % 10/28/18 15:58 17 units/L (13-60) 10/28/18 15:58 HCG, Qual Negative (Negative) 10/28/18 15:58 Straw (Yellow) 10/28/18 20:40 Clear (Clear) 10/28/18 20:40 7.0 (5.0-7.0) 10/28/18 20:40 Ur Specific [place] 1.006 (1.003-1.030) 10/28/18 20:40 <15 mg/dl mg/dL (Negative) 10/28/18 20:40 Neg mg/dL (Negative) 10/28/18 20:40 Neg mg/dL (Negative) 10/28/18 20:40 Neg (Negative) 10/28/18 20:40 Neg (Negative) 10/28/18 20:40 Neg (Negative) 10/28/18 20:40 < 2.0 mg/dL (<2.0) 10/28/18 20:40 Ur Leukocyte Esterase Neg (Negative) 10/28/18 20:40 < 1.0 /HPF (0.0-6.0) 10/28/18 20:40 2.0 /HPF (0.0-6.0) 10/28/18 20:40 U Epithel Cells (Auto) 1.0 /HPF (0-13.0) 10/28/18 20:40 Blood Type B POSITIVE 10/28/18 17:28 Antibody Screen Negative 10/28/18 17:28 Crossmatch See Detail 10/28/18 17:28 Active Medications - Current Medications Current Medications: Generic Name Dose Route Start Last Admin Trade Name Freq PRN Reason Stop Dose Admin Acetaminophen 650 mg 10/28/18 23:22 10/29/18 11:07 Tylenol PO 650 mg Q4H PRN Administration Pain MILD(1-3)/Fever >100.5/KELLER Dextrose/Sodium Chloride 1,000 mls @ 75 mls/hr 10/29/18 08:00 D5ns IV DIRECT VIJAYA Sodium Chloride 1,000 mls @ 50 mls/hr 10/29/18 11:00 10/29/18 11:08 Nacl 0.9% 1000 Ml IV 50 mls/hr DIRECT VIJAYA Administration Morphine Sulfate 2 mg 10/28/18 22:07 10/29/18 09:09 Morphine IV 2 mg Q4H PRN Administration Pain, Moderate (4-6) Ondansetron HCl 4 mg 10/28/18 23:22 Zofran IV Q8H PRN Nausea And Vomiting Pantoprazole Sodium 40 mg 10/28/18 23:45 10/29/18 09:09 Protonix IV 40 mg BID VIJAYA Administration Sodium Chloride 10 ml 10/29/18 10:00 10/29/18 11:08 Sodium Chloride Flush Syringe 10 Ml IV 10 ml BID VIJAYA Administration Sodium Chloride 10 ml 10/28/18 23:22 Sodium Chloride Flush Syringe 10 Ml IV PRN PRN LINE FLUSH
[2018-10-29] MEDS ORDERED: XYLOCAINE MPF 2% ONE (12:00)
[2018-10-29] MEDS ORDERED: NACL 0.9% 1000 ML 1,000 ML ONE (12:07)
--- NOTE | 2018-10-29 12:22 | Anesthesia Consultation ---
Anesthesia Consult and Med Hx Date of service: 10/29/18 - Airway Anesthetic Teeth Evaluation: Good ROM Head & Neck: Adequate Mental/Hyoid Distance: Adequate Mallampati Class: Class II Intubation Access Assessment: Probably Good - Pre-Operative Health Status ASA Pre-Surgery Classification: ASA2, Emergency Proposed Anesthetic Plan: MAC - Pulmonary Hx Smoking: Yes (3 cig/day) - Gastrointestinal Hx Ulcer: Yes (had peptic ulcer 3 years ago) - Hematic Hx Anemia: Yes (vWD, h/o multiple transfusion) - Other Systems Hx Cancer: No
--- NOTE | 2018-10-29 12:23 | Anesthesia Day of Surgery ---
Anesthesia Day of Surgery - Day of Surgery Patient Examined: Yes Patient H&P Reviewed: Yes Patient is NPO: Yes
[2018-10-29] MEDS ORDERED: DIPRIVAN 10 MG/ML IV ONE (13:28)
--- NOTE | 2018-10-29 13:53 | Post Operative Note ---
Pre-op diagnosis: Hematemesis Post-op diagnosis: other (Antral ulcers, no active or old blood) Findings: 1. 2 antral ulcers, 8-10 mm, shallow, with white base. No stigmata of bleeding. 2. Normal esophagus. 3. Stomach normal otherwise. 4. Duodenitis, mild, with patchy erythema. Procedure: EGD with biopsy Anesthesia: MAC Surgeon: MARLEY BARAJAS Estimated blood loss: none Pathology: list (1. Gastric antrum) Specimen disposition: to lab Condition: stable Disposition: floor (Advance diet. Check iron, and replete. If stable, may discharge.)
--- NOTE | 2018-10-29 14:03 | Post Anesthesia Evaluation ---
- Post Anesthesia Evaluation Patient Participated: Yes Airway Patent: Yes Stable Respiratory Function: Yes Nausea/Vomiting: No Temp > 96.8F: Yes Pain Manageable: Yes Adequeate Hydration: Yes Anesthesia Complications: No Block Receding Appropriately: Not Applicable Patient on Ventilator: No
[2018-10-30] MEDS: MORPHINE IV PRN ×2 (04:53→10:17)
[2018-10-30 05:56] LABS: Iron 21 ug/dL (37-170); Total Iron Binding Capacity 348 mcg/dL (250-450)
[2018-10-30 06:47] VITALS: BP 109/66
[2018-10-30] MEDS: PROTONIX IV SCH (10:17)
[2018-10-30] MEDS: SODIUM CHLORIDE FLUSH SYRINGE 10 ML IV SCH (10:22)
[2018-10-30 10:24] LABS: Hematocrit 26.1 % (30.3-42.9); Hemoglobin 7.6 gm/dl (10.1-14.3)
--- NOTE | 2018-10-30 10:52 | Gastroenterology Progress Note ---
<OLIVERIO BRUNO - Last Filed: 10/30/18 10:52> Assessment and Plan 1.GI bleed/hematemesis 2.H/O PUD 3.H/O Von Willebrand's disease -H/H stable -continue to monitor H/H and transfuse as needed -no active signs of bleeding overnight or this am -s/p EGD yesterday that revealed 2 antral ulcers (8-10mm, shallow, white base) w/o bleeding stigmata and duodenitis -bx results pending- f/u in clinic -clinically, patient is stable. Reports feeling better today with abd pain improved. No N/V. Tolerating clears. -okay to advance diet as tolerated -continue PPI BID -continue supportive care -patient okay to be d/c per GI standpoint on PPI as above with f/u in clinic in ~2 weeks -will sign off, please call if needed Subjective Date of service: 10/30/18 Principal diagnosis: GI bleed Interval history: Patient resting in bed w/o acute distress. Reports feeling better today with abd pain improved and no N/V or active signs of bleeding overnight. Tolerating liquids. Objective - Constitutional Vitals: Temp Pulse Resp BP Pulse Ox 98.2 F 62 20 109/66 100 10/30/18 01:04 10/30/18 08:00 10/30/18 05:58 10/30/18 05:58 10/30/18 10:00 General appearance: no acute distress - Respiratory Respiratory effort: normal Respiratory: bilateral: CTA - Cardiovascular Rhythm: regular - Gastrointestinal General gastrointestinal: Present: soft, tender (slight generalized TTP), non- distended, normal bowel sounds - Neurologic Neurological: alert and oriented x3 - Labs CBC & Chem 7: 10/30/18 09:54 10/29/18 03:54 Labs: Laboratory Results - last 24 hr 10/30/18 10/30/18 10/30/18 04:47 04:47 09:54 Hgb 7.6 L Hct 26.1 L Iron 21 L TIBC 348 Ferritin 15.5 <MARLEY BARAJAS - Last Filed: 10/30/18 12:19> Assessment and Plan Pt doing well. Iron levels low. Can D/C on daily PPI, bid not needed. Also, chronic iron supplementation. F/u as outpatient, and if H pylori -> treat and stop PPI after 2 months. If negative, consider gastrin level, and chronic H2 blockers after 2 months. Objective - Constitutional Vitals: Temp Pulse Resp BP Pulse Ox 98.2 F 62 20 109/66 100 10/30/18 01:04 10/30/18 08:00 10/30/18 05:58 10/30/18 05:58 10/30/18 10:00 - Labs CBC & Chem 7: 10/30/18 09:54 10/29/18 03:54 Labs: Laboratory Results - last 24 hr 10/30/18 10/30/18 10/30/18 04:47 04:47 09:54 Hgb 7.6 L Hct 26.1 L Iron 21 L TIBC 348 Ferritin 15.5
--- NOTE | 2018-10-30 11:43 | Consultation ---
History of Present Illness Consult date: 10/30/18 Consult reason: other (Second degree AVB) History of present illness: This is a 33-year old female who gives a past medical history of Von Willeb rand's disease and PUD. She presented to this hospital two days ago with reports of nausea, vomiting, epigastric pain, admitted with acute GI bleed and severe anemia. Initial labs was a hemoglobin of 6.0. Patient has undergone GI evaluation and workup. A cardiac consultation has been requested for transient Wenchebach AV block seen on telemetry. An ECG is sinus rhythm with prolonged UT interval. There is no reports of chest pain, shortness of breath or palpitations. The patient's blood pressure has remained stable in the low 100s. Past History Past Medical History: other Past Surgical History: Social history: smoking Family history: diabetes, hypertension, other (vWD) Medications and Allergies Allergies Allergy/AdvReac Type Severity Reaction Status Date / Time NSAIDS (Non-Steroidal Allergy Unknown Verified 07/14/18 21:32 Anti-Inflamma Penicillins Allergy Unknown Verified 07/14/18 21:32 Home Medications Medication Instructions Recorded Confirmed Last Taken Type No Known Home Medications [No 10/30/18 10/30/18 Unknown History Reported Home Medications] Active Meds: Active Medications Acetaminophen (Tylenol) 650 mg PO Q4H PRN PRN Reason: Pain MILD(1-3)/Fever >100.5/KELLER Last Admin: 10/29/18 19:01 Dose: 650 mg Documented by: Dextrose/Sodium Chloride (D5ns) 1,000 mls @ 75 mls/hr IV DIRECT VIJAYA Sodium Chloride (Nacl 0.9% 1000 Ml) 1,000 mls @ 50 mls/hr IV DIRECT VIJAYA Last Admin: 10/29/18 11:08 Dose: 50 mls/hr Documented by: Morphine Sulfate (Morphine) 2 mg IV Q4H PRN PRN Reason: Pain, Moderate (4-6) Last Admin: 10/30/18 10:17 Dose: 2 mg Documented by: Ondansetron HCl (Zofran) 4 mg IV Q8H PRN PRN Reason: Nausea And Vomiting Last Admin: 10/29/18 19:01 Dose: 4 mg Documented by: Pantoprazole Sodium (Protonix) 40 mg IV BID [facility] Last Admin: 10/30/18 10:17 Dose: 40 mg Documented by: Sodium Chloride (Sodium Chloride Flush Syringe 10 Ml) 10 ml IV BID VIJAYA Last Admin: 10/30/18 10:22 Dose: 10 ml Documented by: Sodium Chloride (Sodium Chloride Flush Syringe 10 Ml) 10 ml IV PRN PRN PRN Reason: LINE FLUSH Physical Examination Vital Signs Temp Pulse Resp BP Pulse Ox 98.1 F 100 H 15 118/68 100 10/28/18 15:37 10/28/18 15:37 10/28/18 15:37 10/28/18 15:37 10/28/18 15:37 General appearance: no acute distress HEENT: Positive: PERRL Neck: Positive: trachea midline Cardiac: Positive: Reg Rate and Rhythm Lungs: Positive: Normal Breath Sounds Neuro: Positive: Grossly Intact Extremities: Absent: edema Results 10/30/18 09:54 10/29/18 03:54 CBC 10/30/18 Range/Units 09:54 Hgb 7.6 L (10.1-14.3) gm/dl Hct 26.1 L (30.3-42.9) % Assessment and Plan Acute GI bleed -per GI Severe anemia s/p transfusion of PRBCs Hx of Von Willebrand's disease Hx of PUD Transient AV Wenckebach Recommendations: Check a TSH and magnesium. Avoid AV juli blocking agents. Echocardiogram for LVEF assessment.
--- NOTE | 2018-10-30 14:57 | Discharge Summary ---
Providers - Providers Date of Admission: 10/28/18 22:06 Date of discharge: 10/30/18 Attending physician: JULIET BAIRES 10/28/18 21:59 Consult to Physician [CONS] Stat Comment: Dr. Alvarenga spoke with Dr. Ty @ [phone] Consulting Provider: TREY TY Physician Instructions: Reason For Exam: GI Bleed 10/29/18 13:30 Consult to Cardiology [CONS] Routine Consulting Provider: LIZY PATTERSON Reason For Exam: Second degree AV block,, transient Primary care physician: [employer] Hospitalization Condition: Fair Disposition: DC-01 TO HOME OR SELFCARE Core Measure Documentation - Palliative Care Palliative Care/ Comfort Measures: Not Applicable Exam - Constitutional Vitals: Temp Pulse Resp BP Pulse Ox 98.2 F 62 20 109/66 100 10/30/18 01:04 10/30/18 08:00 10/30/18 05:58 10/30/18 05:58 10/30/18 10:00 Plan Activity: no restrictions Diet: regular Plan of Treatment: 1.Follow up with PCP in 1 week 2.Follow up with Dr. Escobedo in 2 weeks 3.Follow up with Dr. Patterson in 1 week 4.Follow up with Hematology in 1-2 weeks for Von Willibrand disease Follow up with: PRIMARY CARE, [Primary Care Provider] - 3-5 Days
== END 2018-10-30 17:25 | disposition home or self-care (01) | DRG 379 ==
LOC: ED 15:23 → 4A 22:06
PROVIDERS: ADMIT Internal Medicine; ATTEND Internal Medicine
PROC: 30233N1 Transfusion of Nonautologous Red Blood Cells into Peripheral Vein, Percutaneous Approach (ICD-10-PCS; 2018-10-28)
PROC: 0DB68ZX Excision of Stomach, Via Natural or Artificial Opening Endoscopic, Diagnostic (ICD-10-PCS; principal; 2018-10-29)
DX: K29.81 Duodenitis with bleeding (principal); K25.4 Chronic or unspecified gastric ulcer with hemorrhage; F17.210 Nicotine dependence, cigarettes, uncomplicated; I44.1 Atrioventricular block, second degree; D64.9 Anemia, unspecified; Z83.3 Family history of diabetes mellitus; Z82.49 Family history of ischemic heart disease and other diseases of the circulatory system; Z88.0 Allergy status to penicillin; Z87.11 Personal history of peptic ulcer disease
CPT/HCPCS: 36415; 74177; 80048; 80053; 81001; 82728; 83550; 83690; 83735; 84439; 84443; 84484; 84703; 85007; 85014; 85018; 85025; 85610; 86850; 86900; 86901; 86920; 87116; 88305; 88342; 93005; 93010; 93306; 96361; 96374; 96375; G0378; C9113; J2270; J2405; J2704; J7030; J7040; P9016; Q9967